=== PATIENT | male | born 1950 | race African-American/Black ===

== ENCOUNTER 2025-04-26 06:39 | Emergency (ER) | payer OTHER ==
[~2025-04-26] VITALS: Ht 180.3 cm; Wt 107.0 kg
[2025-04-26 06:41] VITALS: PULSE 95; RESP 18; O2SAT 97
[2025-04-26 06:52] VITALS: BP 130/88; TEMP 36.7; O2SAT 99
[2025-04-26] MEDS: LIDOCAINE HCL/EPINEPHRINE 1%-EPI 1:100,000 20ML VIAL INFIL ONE (08:23)
== END 2025-04-26 08:35 | disposition home or self-care (01) ==
LOC: ER 06:39
DX: S01.01XA Laceration without foreign body of scalp, initial encounter (principal); W19.XXXA Unspecified fall, initial encounter; Y93.01 Activity, walking, marching and hiking; Y92.89 Other specified places as the place of occurrence of the external cause; Y99.8 Other external cause status
CPT/HCPCS: 99284; 70450; 12001; J2004

== ENCOUNTER 2025-05-10 06:48 | Emergency (ER) | payer OTHER ==
[~2025-05-10] VITALS: Ht 180.3 cm; Wt 108.6 kg
[2025-05-10 06:54] VITALS: TEMP 36.9; O2SAT 100
[2025-05-10 08:00] VITALS: BP 148/82; PULSE 55; RESP 16; O2SAT 100
== END 2025-05-10 07:58 | disposition home or self-care (01) ==
LOC: ER 06:48
DX: S01.91XD Laceration without foreign body of unspecified part of head, subsequent encounter (principal); X58.XXXD Exposure to other specified factors, subsequent encounter
CPT/HCPCS: 99282